=== PATIENT | male | born 1965 | race Caucasian/White ===

== ENCOUNTER 2021-07-14 21:00 | Emergency (ER) | payer BC ==
[2021-07-15 00:01] LABS: BUN/CREATININE RATIO 16 (0-10)
[2021-07-15 00:19] LABS: HEMOGLOBIN 12.9 gm/dl (14.0-17.5); RED BLOOD COUNT 4.08 M/UL (4.20-5.50); WHITE BLOOD COUNT 7.5 K/UL (4.5-11.0)
== END 2021-07-15 01:48 | disposition left against medical advice (07) ==
LOC: ER1 21:00
PROVIDERS: Physician Assistant
DX: R07.9 Chest pain, unspecified (principal); E11.9 Type 2 diabetes mellitus without complications
CPT/HCPCS: 71045; 80053; 82550; 82553; 83874; 84484; 85025; 99283